=== PATIENT | male | born 1950 | race Caucasian/White ===

== ENCOUNTER 2022-11-12 11:11 | Emergency (ER) | payer BC ==
[~2022-11-12] VITALS: Ht 177.8 cm; Wt 65.1 kg
[~2022-11-12 11:11] MED LIST: COMBIVENT RESPIM4 GM INH; FOLTANX TABLET1 EACH PO; MULTI VITAMIN1 EACH PO; NORCO 10-325 T1 EACH PO; VITAMIN D-32000 UNIT PO
[2022-11-12 13:55] LABS: BASOPHILS 0.9 % (0-2); EOSINOPHILS 0.9 % (0-6); HEMATOCRIT 43.4 % (35.0-50.0); HEMOGLOBIN 14.6 g/dL (12.0-18.0); LYMPHOCYTES 28.1 % (24-44); MCH 35.2 (27-36); MCHC 33.7 g/dl (30-36); MCV 104.7 fl (81-99); MONOCYTES 5.5 % (0-12); NEUTROPHILS 64.6 % (39-80); PLATELET COUNT 294 K/uL (140-440); RBC 4.15 M/ul (4.3-5.7); RDW 13.4 (10.5-15.0)
[2022-11-12 13:57] LABS: BILIRUBIN, URINE NEGATIVE (negative); BLOOD/HGB, URINE MODERATE (Negative); KETONE, URINE NEGATIVE (Negative); LEUK ESTERASE, URINE MODERATE (negative); NITRITE, URINE NEGATIVE (negative)
[2022-11-12 14:01] LABS: AMPHETAMINES, UR NEGATIVE (NEGATIVE); BARBITURATES, UR NEGATIVE (NEGATIVE); BENZODIAZEPINES, UR NEGATIVE (NEGATIVE); MARIJUANA (THC), UR NEGATIVE (NEGATIVE)
[2022-11-12 14:02] LABS: BUPRENORPHINE,UR NEGATIVE (NEGATIVE); COCAINE, UR NEGATIVE (NEGATIVE); MDMA, UR NEGATIVE (NEGATIVE); METHADONE, UR NEGATIVE (NEGATIVE); METHAMPHETAMINE, UR NEGATIVE (NEGATIVE); OPIATES, UR NEGATIVE (NEGATIVE); OXYCODONE, UR NEGATIVE (NEGATIVE); PHENCYCLIDINE, UR NEGATIVE (NEGATIVE); TRICYCLIC ANTIDEPRESSANT, UR NEGATIVE (NEGATIVE)
[2022-11-12 14:09] LABS: ALBUMIN 3.9 g/dL (3.4-5.0); ALBUMIN/GLOBULIN RATIO 0.91 (1.1-2.4); ANION GAP 14.2 (7-21); BILIRUBIN, TOTAL 0.4 ng/dL (0.2-1.0); BUN/CREATININE RATIO 14.16 (6.0-28.6); CALCIUM 9.6 mg/dL (8.5-10.1); CREATININE, SERUM 1.2 mg/dL (0.70-1.30); POTASSIUM 4.2 mmol/L (3.5-5.1); PROTEIN, TOTAL 8.2 g/dL (6.4-8.2)
[2022-11-12 14:16] LABS: BACTERIA, URINE RARE /hpf (negative); CASTS, URINE NONE SEEN \\lpf; CRYSTALS, URINE NONE SEEN (0-1+); EPITHELIAL CELLS, URINE 0 /lpf (0-1+); WHITE BLOOD CELLS, URINE 21-40 /HPF (0-5)
[2022-11-12 14:17] LABS: COLLECTION TYPE, URINE CLEAN CATCH; REFLEX CULTURE, URINE Yes (No)
[2022-11-12] MEDS ORDERED: CEFDINIR300 MG PO (14:33)
[2022-11-12 14:44] VITALS: BP 103/64
== END 2022-11-12 14:44 | disposition home or self-care (01) ==
LOC: ED 11:11
PROVIDERS: Emergency Medicine
DX: F10.229 Alcohol dependence with intoxication, unspecified (principal); N39.0 Urinary tract infection, site not specified; Y90.4 Blood alcohol level of 80-99 mg/100 ml; Z88.0 Allergy status to penicillin; Z88.1 Allergy status to other antibiotic agents; Z79.51 Long term (current) use of inhaled steroids; Z79.899 Other long term (current) drug therapy
CPT/HCPCS: 36415; 80053; 81001; 85025; 87088; 99284; G0480